=== PATIENT | female | born 1945 | race Caucasian/White ===

== ENCOUNTER 2017-08-05 10:04 | Day surgery (SDC) | payer MEDICARE, SELFPAY ==
[2017-07-29 10:55] VITALS: BP 118/71; PULSE 74; RESP 75; TEMP 36.9; O2SAT 96; BMI 37.8
[2017-07-29 12:10] LABS: Hematocrit 40.9 % (37-47); Hemoglobin 13.6 g/dl (12.0-15.0); Mean Corp Hgb Conc 33.3 g/gl (32-36); Mean Corpuscular Hgb 28.5 pg (27.0-32.0); Mean Corpuscular Volume 85.6 fL (81-99); Mean Platelet Vol. 9.9 fl (6.2-12.0); Platelet Count 311 K/mm3 (150-450); RBC Distribution Width CV 14.5 % (11.6-14.6); RBC Distribution Width SD 44.1 fl (35.1-43.9); Red Blood Count 4.78 M/mm3 (4.2-5.4); White Blood Count 9.3 K/mm3 (4.4-11.0)
[2017-07-29 12:12] LABS: Scan Indicated on CBC? Y/N NO
[2017-07-29 12:32] LABS: Hemoglobin A1c 10.9 % (4.2-6.3)
[2017-07-29 12:49] LABS: Anion Gap 9 (5-15); BUN 40 mg/dL (7-18); BUN/Creat Ratio 28.8 RATIO (10-20); Calcium,Total 9.2 mg/dL (8.5-10.1); Chloride 102 mmol/L (98-107); Creatinine, Serum 1.39 mg/dL (0.55-1.02); EST Glomerular Filtration Rate 39 mL/min (>60); Est Glom Filt Rate - Afr Amer 48 mL/min (>60); Estimated Creatinine Clearance 25.51 ml/min; Glucose 212 mg/dL (74-106); Potassium 4.1 mmol/L (3.5-5.1); Sodium Level 136 mmol/L (136-145); Thyroid Stim Hormone (TSH) 2.85 uIU/mL (0.358-3.74)
--- NOTE | 2017-08-05 | BLB_PTH ---
PATIENT: MATHEW SOUSA LOC: [facility] U#:[id number] AGE/SX: 72/F ROOM: RE08/05/[address]: Dr. Shoaib Richter MD : 1945 BED: DIS: 08/05/2017 SPEC #: [id number] RECD: 08/05/17 14:30 STATUS: BIBI MONICA #: [id number] BEVERLY: 08/05/17 00:[address]: Shoaib Richter DEPT: SURGICAL PATHOLOGY RECD BY: Maury Adams ENTERED: 08/05/17 14:30 SP TYPE: TURB OTHR DR: Dr. Christ Saeed MD Tissues: Urinary bladder, NOS Procedures: Surgery Specimen Level V HEADER OPERATION: Cysto, transurethral resection bladder, tumor, [employer] PRE-OP DIAGNOSIS: Bladder cancer TISSUE SUBMITTED: Bladder tumor MICROSCOPIC DIAGNOSIS Bladder tumor, biopsy: Noninvasive papillary urothelial carcinoma. See cancer summary below. BLADDER CANCER (TUR) SUMMARY: Procedure - TURBT Histologic type ? urothelial (transitional cell) carcinoma Associated epithelial lesions ? none identified Histologic grade - urothelial carcinoma (WHO 2004/ISUP) ? low grade (2/3) Tumor configuration - papillary Adequacy of material for determining muscularis propria invasion - muscularis propria (detrusor muscle) is present and free of tumor. Lymph-Vascular invasion ? not identified Microscopic extent of tumor ? noninvasive papillary carcinoma Additional pathologic findings ? chronic inflammation The above summary is in compliance with [employer] (CAP) Cancer Protocols Checklist and [place] [employer] on Cancer (AJCC), Staging Manual, 8th Ed. SJ:rg 08/08/17 COMMENT Please make reference to previous specimen ([id number]) urinary bladder tumor, TUR with diagnosis of papillary urothelial carcinoma. Case has been reviewed in consultation with Dr. Stubbs who concurs with the above diagnosis. IDC:AM MICROSCOPIC DESCRIPTION Slides are reviewed. GROSS DESCRIPTION Received in fixative is one container labeled with the patient's name and designated bladder tumor. The specimen consists of multiple irregular fragments of light rogers soft tissue that in aggregate measure 2 x 2 x 0.3 cm. The specimen is totally submitted in one cassette. / HAMZAH:juan 08/05/17 TC:0 CPT: 26395
[2017-08-05 10:35] VITALS: BP 111/87; PULSE 67; RESP 18; TEMP 37.3; O2SAT 95; BMI 37.8
[2017-08-05 11:06] LABS: Bedside Glucose 263 mg/dL (70-110)
[2017-08-05] MEDS: Cefazolin 2 GM in 0.9% Normal Saline 100 ML IV (11:54)
--- NOTE | 2017-08-05 11:55 | PCM.DC.URO ---
Discharge Diet: Light diet - advance as tolerated Discharge Activity: Return to Normal Activity, No Restrictions May shower in (days): 1 Call your doctor if your incision/area has: Continuous Slow Oozing, Sudden Increased Bleeding, Increased Pain/ Swelling, Increased Redness, Foul Smelling Discharge, Swelling at the incision site Instructions: Treating Bladder Cancer: TUR (Transurethral Resection) Allergies/Adverse Reactions: Allergies cat dander Allergy (Verified 07/29/17 10:30) Itching duloxetine [From Cymbalta] Allergy (Verified 07/29/17 10:30) Unknown metformin [From Glucophage] Allergy (Verified 07/29/17 10:30) Unknown pollen extracts Allergy (Verified 07/29/17 10:30) Itching rosiglitazone [From Avandia] Allergy (Verified 07/29/17 10:30) Unknown theophylline [From Nav-Dur] Allergy (Verified 07/29/17 10:30) Unknown celecoxib [From Celebrex] Adverse Reaction (Verified 07/29/17 10:30) Unknown DUST Allergy (Uncoded 07/29/17 10:30) Other Medications to take at Discharge Albuterol IH (ProAir) [Proair Hfa] 2 puff INHALATION Q4H PRN PRN 08/02/14 Atorvastatin Calcium [Lipitor] 80 mg PO QHS 08/02/14 Hydrochlorothiazide 25 mg PO DAILY 08/02/14 Levothyroxine [Synthroid] 50 mcg PO DAILY 08/02/14 Oxycodone HCl/Acetaminophen [Percocet 5-325] 1 tablet PO TID 08/02/14 Paroxetine HCl [Paxil] 40 mg PO BID 08/02/14 Valsartan [Diovan] 80 mg PO DAILY 08/02/14 Aspirin [Aspirin, Baby] 81 mg PO DAILY@0800 02/15/17 Insulin Aspart [Novolog Flexpen] 18 units SC TIDCM 02/15/17 Beclomethasone Diprop Inhaler [Qvar 80 Mcg Inhaler] 1 puff INHALATION BID 07/29/17 Insulin Detemir [Levemir (BKC)] 30 units SC QHS 07/29/17 Loratadine 10 mg PO PRN PRN 07/29/17 Omeprazole [Prilosec] 20 mg PO DAILY 07/29/17 Ciprofloxacin [Cipro] 500 mg PO BID #14 tab 08/05/17 Hydrocodone/Acetaminophen [[place] 5-325 Tablet] 1 ea PO Q4H PRN PRN 7 Days #20 tab 08/05/17 The following prescriptions were given: Hydrocodone/Acetaminophen [[place] 5-325 Tablet] 1 ea PO Q4H PRN PRN 7 Days #20 tab PRN Reason: Pain Ciprofloxacin [Cipro] 500 mg PO BID #14 tab Primary Care Physician: Christ Saeed MD [Primary Care Provider] - Please Follow Up With: Shoaib Richter MD When: August 18 at 3:30 pm
--- NOTE | 2017-08-05 11:59 | DCINST_ITS ---
Discharge Diet: Light diet - advance as tolerated Discharge Activity: Return to Normal Activity, No Restrictions May shower in (days): 1 Call your doctor if your incision/area has: Continuous Slow Oozing, Sudden Increased Bleeding, Increased Pain/ Swelling, Increased Redness, Foul Smelling Discharge, Swelling at the incision site Instructions: Treating Bladder Cancer: TUR (Transurethral Resection) Allergies/Adverse Reactions: Allergies cat dander Allergy (Verified 07/29/17 10:30) Itching duloxetine [From Cymbalta] Allergy (Verified 07/29/17 10:30) Unknown metformin [From Glucophage] Allergy (Verified 07/29/17 10:30) Unknown pollen extracts Allergy (Verified 07/29/17 10:30) Itching rosiglitazone [From Avandia] Allergy (Verified 07/29/17 10:30) Unknown theophylline [From Nav-Dur] Allergy (Verified 07/29/17 10:30) Unknown celecoxib [From Celebrex] Adverse Reaction (Verified 07/29/17 10:30) Unknown DUST Allergy (Uncoded 07/29/17 10:30) Other Medications to take at Discharge Albuterol IH (ProAir) [Proair Hfa] 2 puff INHALATION Q4H PRN PRN 08/02/14 Atorvastatin Calcium [Lipitor] 80 mg PO QHS 08/02/14 Hydrochlorothiazide 25 mg PO DAILY 08/02/14 Levothyroxine [Synthroid] 50 mcg PO DAILY 08/02/14 Oxycodone HCl/Acetaminophen [Percocet 5-325] 1 tablet PO TID 08/02/14 Paroxetine HCl [Paxil] 40 mg PO BID 08/02/14 Valsartan [Diovan] 80 mg PO DAILY 08/02/14 Aspirin [Aspirin, Baby] 81 mg PO DAILY@0800 02/15/17 Insulin Aspart [Novolog Flexpen] 18 units SC TIDCM 02/15/17 Beclomethasone Diprop Inhaler [Qvar 80 Mcg Inhaler] 1 puff INHALATION BID Insulin Detemir [Levemir (BKC)] 30 units SC QHS 07/29/17 Loratadine 10 mg PO PRN PRN 07/29/17 Omeprazole [Prilosec] 20 mg PO DAILY 07/29/17 Ciprofloxacin [Cipro] 500 mg PO BID #14 tab 08/05/17 Hydrocodone/Acetaminophen [[place] 5-325 Tablet] 1 ea PO Q4H PRN PRN 7 Days #20 tab 08/05/17 The following prescriptions were given: Hydrocodone/Acetaminophen [[place] 5-325 Tablet] 1 ea PO Q4H PRN PRN 7 Days #20 tab PRN Reason: Pain Ciprofloxacin [Cipro] 500 mg PO BID #14 tab Primary Care Physician: Christ Saeed MD [Primary Care Provider] - Please Follow Up With: Shoaib Richter MD When: August 18 at 3:30 pm
--- NOTE | 2017-08-05 12:46 | OP.PCM_ITS ---
Report of Operation Date of Procedure: 08/05/17 Pre-Operative Diagnosis: Bladder cancer with multiple large tumors Post-Operative Diagnosis: Same Surgery/Procedure Performed:: Transurethral resection of multiple tumors within the bladder in multiple areas, total size large. Description of Surgical Findings:: 72-year-old female who had a bladder tumor resected in the fall 2016 she failed to follow-up with me in the office after these resection she was recently seen in the office and the cystoscopy was done and demonstrated multiple tumors recurrent in the dome posterior wall of the bladder multiple sessile tumors and papillary tumors throughout the bladder. Therefore she presents today the hospital for resection of these bladder tumors. 72-year-old female taken back to the operating room after smooth induction of general anesthesia she was placed supine in dorsal lithotomy position. Went into the bladder with a 26 [place] continuous flow resectoscope and started working my way along the bladder wall along the posterior aspect first resected tumors of posterior aspect of the bladder these were papillary bunched up tumors in clumps appear to be noninvasive but very prominent throughout the bladder took multiple resections try to avoid any deep resection of the bladder again this appeared to be noninvasive tumors but multiple tumors sessile with papillary attachments of the top Josiah a dozen tumors within the bladder workplace where way up from the posterior wall the way to the dome resecting very carefully and then after resecting all visible tumors then I checked the dome check the lateral lyman checked the trigone area all the tumor chips were resected out and removed handed off as a specimen I obtained good hemostasis and then placed mitomycin into the bladder and the patient will go home today after she urinates without a catheter she will follow-up in the office after the resection of all these multiple tumors she will need BCG therapy followed by surveillance cystoscopy followed by maintenance BCG given her aggressive disease and aggressive recurrent pattern. Type of Anesthesia:: General Drains: none - Admit VTE Documentation VTE Present on Admission: No VTE Mechan Device Prophylaxis: SCD's VTE Pharm Prophylaxis ordered?: No Reason prophylaxis not ordered:: Treatment Not Indicated
[2017-08-05 13:02] VITALS: BP 106/73; BP 111/87; PULSE 81; RESP 16; TEMP 36.8; O2SAT 98
[2017-08-05 13:15] VITALS: BP 111/87; BP 85/38; PULSE 75; PULSE 77; RESP 16; RESP 18; O2SAT 93; O2SAT 94
[2017-08-05 13:30] VITALS: BP 102/82; BP 111/87; PULSE 78; RESP 16; O2SAT 96
[2017-08-05 13:35] VITALS: BP 111/87; BP 116/62; PULSE 78; RESP 18; TEMP 36.7; O2SAT 96
[2017-08-05 14:55] VITALS: BP 111/87
== END 2017-08-05 14:55 | disposition home or self-care (01) ==
LOC: SDC 10:05 → AC 10:06
PROVIDERS: Family Provider Family Medicine; PCP Family Medicine; Visit Provider Urology
PROC: 0TBB8ZZ Excision of Bladder, Via Natural or Artificial Opening Endoscopic (ICD-10-PCS; CPT 51720; principal; 2017-08-05 11:50)
DX: C67.8 Malignant neoplasm of overlapping sites of bladder (principal); E11.9 Type 2 diabetes mellitus without complications; Z79.4 Long term (current) use of insulin; E07.9 Disorder of thyroid, unspecified; F41.9 Anxiety disorder, unspecified; F32.9 Major depressive disorder, single episode, unspecified; E78.00 Pure hypercholesterolemia, unspecified; K21.9 Gastro-esophageal reflux disease without esophagitis; Z79.82 Long term (current) use of aspirin; Z79.899 Other long term (current) drug therapy; M79.7 Fibromyalgia; Z87.891 Personal history of nicotine dependence; J45.909 Unspecified asthma, uncomplicated; G14 Postpolio syndrome; G43.909 Migraine, unspecified, not intractable, without status migrainosus
CPT/HCPCS: 00912; 51720; 52240; 36415; 80048; 82962; 83036; 84443; 85027; 88307; J7120; J2405; J3490; J9280